=== PATIENT | female | born 1960 | race Caucasian/White ===

== ENCOUNTER 2017-05-16 10:17 | Outpatient (CLI) | payer MEDICARE, MEDICAID | END 2017-05-16 10:18 | disposition home or self-care (01) | LOC: SC 10:17 | PROVIDERS: ATTEND Internal Medicine Pulmonary Disease | DX: G47.30 Sleep apnea, unspecified (principal); G47.10 Hypersomnia, unspecified; R06.83 Snoring; G47.8 Other sleep disorders; E66.9 Obesity, unspecified; Z68.30 Body mass index [BMI] 30.0-30.9, adult; F17.210 Nicotine dependence, cigarettes, uncomplicated | CPT/HCPCS: 99203; G0463; 99212 ==

== ENCOUNTER 2017-06-30 19:48 | Outpatient (CLI) | payer MEDICARE, MEDICAID | END 2017-06-30 19:49 | disposition short-term general hospital (02) | LOC: EMS 19:48 | PROVIDERS: ATTEND Surgery | DX: S89.92XA Unspecified injury of left lower leg, initial encounter (principal); M25.552 Pain in left hip; M25.512 Pain in left shoulder; V48.5XXA Car driver injured in noncollision transport accident in traffic accident, initial encounter; Y92.413 State road as the place of occurrence of the external cause | CPT/HCPCS: A0425; A0429 ==

== ENCOUNTER 2017-10-07 21:39 | Outpatient (CLI) | END 2017-10-07 21:40 | disposition home or self-care (01) ==

== ENCOUNTER 2017-11-23 09:48 | Outpatient (CLI) | payer MEDICARE, MEDICAID | END 2017-11-23 09:49 | disposition home or self-care (01) | LOC: SC 09:48 | PROVIDERS: ATTEND Nurse Practitioner Family | DX: G47.61 Periodic limb movement disorder (principal); R06.83 Snoring; R11.2 Nausea with vomiting, unspecified | CPT/HCPCS: 99214; G0463; 99212 ==